=== PATIENT | female | born 1945 | race Caucasian/White ===

== ENCOUNTER 2016-11-20 14:35 | Emergency (ER) | payer MEDICARE, OTHER ==
[~2016-11-20] VITALS: Ht 165.1 cm; Wt 91.0 kg
[~2016-11-20 14:35] MED LIST: ALBU8.5H3 INH; AZIT250T94 PO; DULO60CA6 PO; IBUP-1542 PO; LEVO112T42 PO; METR500T PO; NAPR-688 PO; OMEP20CA16 PO; OXYC-281 PO; PRED20TA PO; TRAZ50TA18 PO
[2016-11-20 14:50] VITALS: Ht 165.1 cm; Wt 91.0 kg
[2016-11-20] MEDS ORDERED: ALBUTEROL 0.5% (NEB) 2.5 MG/0.5 ML AMP INH STA (17:08)
[2016-11-20] MEDS ORDERED: predniSONE 20 MG TAB PO STA (17:08)
[2016-11-20] MEDS ORDERED: ALBUTEROL 0.083% (NEB) 2.5 MG/3 ML AMP NEB STA (17:12)
--- NOTE | 2016-11-20 17:49 | RADRPT ---
PROCEDURE: XR Chest. CLINICAL INDICATION: Shortness of breath. Asthma exacerbation. Cough. TECHNIQUE: Single frontal view. COMPARISON: 02/28/2016. FINDINGS: There is mild scarring at the lung bases. The lungs are otherwise clear. The heart size is normal. There is no pleural effusion or pneumothorax. A surgical screw is present in the left humeral head. IMPRESSION: 1. Mild scarring at the lung bases. 2. Surgical screw in the left humeral head. 3. Otherwise unremarkable study. RPTAT: QQ .Aureliano Choudhury MD, MD Date Time Electronically viewed and signed by .Aureliano Choudhury MD, MD on 11/20/2016 17:49 .R/
[2016-11-20] MEDS ORDERED: AZIT250T94 PO (18:12)
[2016-11-20] MEDS ORDERED: BENZ100C70 PO (18:12)
[2016-11-20] MEDS ORDERED: IBUP-1542 PO (18:15)
[2016-11-20 18:21] VITALS: BP 121/74; PULSE 88; RESP 18; TEMP 98.6
--- NOTE | 2016-11-20 18:38 | ERD ---
ER Documentation Chief Complaint Date/Time DATE: 11/20/16 TIME: 18:30 Chief Complaint cough and sob x3 days HPI Patient is a 71-year-old female with past medical history of hypothyroidism, hypertension who presents emergency department with a cough 3 days. Patient states her cough is initially drainage however it has now become productive. Patient reports yellow to green phlegm. Patient also reports some clear rhinorrhea. Patient states that her cough is worse at night. Patient states that she feels as if she is wheezing. Patient also complaining of chest pain and shortness of breath only when coughing. She does not have chest pain at rest. Patient denies any diaphoresis, jaw pain, arm pain or loss of consciousness. Patient denies any nausea, vomiting, abdominal pain, diarrhea. Patient states she did receive a flu vaccine this year. No recent travel. No sick contacts. ROS All systems reviewed and are negative except as per history of present illness. Medications Home Meds Active Scripts Ibuprofen* (Motrin*) 600 Mg Tab, 600 MG PO Q6, #30 TAB Prov:IRINA COUCH PA-C 11/20/16 Benzonatate* (Tessalon Perle*) 100 Mg Capsule, 100 MG PO Q8H Y for COUGH, #20 CAP Prov:IRINA COUCH PA-C 11/20/16 Azithromycin* (Zithromax*) 250 Mg Tablet, 250 MG PO .ZPACK DIRECTED, #6 TAB TAKE 500 MG (2 TABS) THE FIRST DAY THEN 250 MG (1 TAB) DAYS 2-5 Prov:IRINA COUCH PA-C 11/20/16 Prednisone* (Prednisone*) 20 Mg Tab, 40 MG PO DAILY for 4 Days, TAB Prov:JAY KIRBY PA-C 06/06/16 Albuterol Sulfate* (Proair HFA*) 8.5 Gm Hfa.aer.ad, 2 PUFF INH Q4, #1 INHALER Prov:JAY KIRBY PA-C 06/06/16 Azithromycin* (Zithromax*) 250 Mg Tablet, 250 MG PO .ZPACK DIRECTED, #6 TAB TAKE 500 MG (2 TABS) THE FIRST DAY THEN 250 MG (1 TAB) DAYS 2-5 Prov:JAY KIRBY PA-C 06/06/16 Oxycodone Hcl-Acetaminophen* (Percocet*) 5-325 Mg Tablet, 1 TAB PO Q4H Y for PAIN LEVEL 6-10, #12 TAB Prov:DARRELL LOPEZ MD 12/08/15 Ibuprofen* (Motrin*) 600 Mg Tab, 600 MG PO TID for PAIN AND/OR INFLAMMATION, # 30 TAB Prov:DARRELL LOPEZ MD 12/08/15 Metronidazole* (Flagyl*) 500 Mg Tablet, 500 MG PO TID for 7 Days, TAB Prov:DARRELL LOPEZ MD 12/08/15 Reported Medications Naproxen* (Naproxen*) 500 Mg Tablet, 500 MG PO BID Y for PAIN AND/OR INFLAMMATION, TAB 12/08/15 Omeprazole* (Omeprazole*) 20 Mg Capsule.dr, 20 MG PO DAILY, #30 CAP 12/08/15 Levothyroxine Sodium* (Levoxyl*) 112 Mcg Tablet, 112 MCG PO BEFORE BREAKFAST, # 30 TAB 12/08/15 Duloxetine Hcl* (Cymbalta*) 60 Mg Capsule.dr, 60 MG PO DAILY, CAP 12/08/15 Trazodone Hcl* (Trazodone Hcl*) 50 Mg Tablet, 50 MG PO QHS Y for SLEEP 07/08/12 Allergies Allergies: Coded Allergies: No Known Allergy (Unverified , 06/06/16) PMhx/Soc History of Surgery: Yes (thyroidectomy, L shoulder sc, appendectomy, R elbow sx , hysterectomy) Anesthesia Reaction: No Hx Neurological Disorder: No Hx Respiratory Disorders: Yes (asthma) Hx Cardiac Disorders: No Hx Psychiatric Problems: Yes (Depression) Hx Miscellaneous Medical Probl: Yes (depression, asthma, thyroid ca) Hx Alcohol Use: No Hx Substance Use: No Hx Tobacco Use: No Smoking Status: Never smoker Physical Exam Vitals Vital Signs Date Time Temp Pulse Resp B/P Pulse Ox O2 Delivery O2 Flow Rate FiO2 11/20/16 18:21 98.6 88 18 121/74 96 Room Air 11/20/16 18:20 Simple Mask 11/20/16 17:25 85 18 97 21 11/20/16 14:50 99.2 85 20 132/68 98 Physical Exam GENERAL: Well-developed, well-nourished female. Appears in no acute distress. Speaking in full sentences. No signs of acute respiratory distress including abdominal retractions, nasal flaring, tripoding. HEAD: Normocephalic, atraumatic. No deformities or ecchymosis. EYE: Pupils equal, round, and reactive to light. EOMs intact. No conjunctival erythema. No eye discharge. ENT: External ear without any masses or tenderness. Auditory canals clear bilaterally. TM visualized bilaterally, non-erythematous, non-bulging. Nasal mucosa pink with no discharge. Oropharynx is pink without any tonsillar erythema or exudates. No uvula deviation. No kissing tonsils. Tender to palpation of bilateral mastoid processes. NECK: Supple. No meningismus. Normal ROM of the neck. CHEST: Left chest is tender to palpation. Pain is reproducible upon palpation. LUNG: Slight wheezing noted in bilateral lower lobes. HEART: Regular rate and rhythm. No murmurs, rubs or gallops. BACK: No midline tenderness. EXTREMITIES: Equal pulses bilaterally. No peripheral clubbing, cyanosis or edema. No unilateral leg swelling. NEUROLOGIC: Alert and oriented to person, place and time. Moving all four extremities. 5/5 strength in all extremities. Normal speech. Steady gait. SKIN: Normal color. Warm and dry. No rashes or lesions. Results 24 hrs Current Medications Medications (Trade) Dose Ordered Sig/Derrell Route PRN Reason Start Time Stop Time Status Last Admin Dose Admin Albuterol (Proventil 0.5% (Neb)) 5 mg ONCE STAT INH 11/20/16 17:08 11/20/16 17:14 DC Prednisone (Prednisone) 40 mg ONCE STAT PO 11/20/16 17:08 11/20/16 17:14 DC Albuterol (Proventil 0.083% (Neb)) 2.5 mg ONCE STAT NEB 11/20/16 17:12 11/20/16 17:14 DC 11/20/16 17:24 Procedures/MDM ED COURSE: The patient was stable throughout ED course. I kept the patient and/or family informed of laboratory and diagnostic imaging results throughout the ED course. DIAGNOSTIC IMAGING: Read by radiologist. DIAGNOSTIC IMAGING REPORT Patient: LAUREN RUSH : 1945 Age: 71 Sex: F MR #: [id number] DOS: 11/20/16 1708 Ordering MD: IRINA COUCH PA-C Location: [facility] Room/Bed: PROCEDURE: XR Chest. CLINICAL INDICATION: Shortness of breath. Asthma exacerbation. Cough. TECHNIQUE: Single frontal view. COMPARISON: 02/28/2016. FINDINGS: There is mild scarring at the lung bases. The lungs are otherwise clear. The heart size is normal. There is no pleural effusion or pneumothorax. A surgical screw is present in the left humeral head. IMPRESSION: 1. Mild scarring at the lung bases. 2. Surgical screw in the left humeral head. 3. Otherwise unremarkable study. RPTAT: QQ .Aureliano Choudhury MD, MD Date Time Electronically viewed and signed by .Aureliano Choudhury MD, MD on 11/20/2016 17:49 .R/ CC: IRINA COUCH PA-C MEDICATIONS GIVEN: Albuterol breathing treatment Patient tolerated medication well with no adverse reactions. Upon reexamination , patient was noted to have improved breath sounds. Patient felt that her shortness of breath was improved. MEDICAL DECISION MAKING: This is a 71-year-old female who presents with cough and shortness of breath 3 days. Vital signs were reviewed. Patient was afebrile. Patient was not hypoxic. ENT exam was normal. Lung exam initially revealed slight wheezing. Patient was given a breathing treatment which did improve her breath sounds. Given these findings, the patient's presentation is most consistent with viral URI vs acute bronchitis. I have a much lower clinical concern for bacterial infections including pneumonia, meningitis, sinusitis, otitis externa, acute otitis media, strep pharyngitis, epiglottitis or peritonsillar abscess. PRESCRIPTIONS: Ibuprofen, Zpak, Tessalon perles Patient advised to fill Z miguel if symptoms persist after 3 days from now. DISCHARGE: At this time, patient is stable for discharge and outpatient management. Supportive therapies such as OTC throat lozenges, salt water gurgles, popsicles and jello discussed. I have instructed the patient to follow-up with his/her primary care physician in 1-2 days. I have instructed the patient to promptly return to the ER for any new or worsening symptoms including increased pain, swelling, fever, nausea, vomiting, weakness or difficulty breathing. The patient and/or family expressed understanding of and agreement with this plan. All questions were answered. Home care instructions were provided. Departure Diagnosis: Primary Impression: Acute bronchitis Bronchitis organism: unspecified organism Qualified Code: J20.9 - Acute bronchitis, unspecified organism Condition: Stable Patient Instructions: Acute Bronchitis Referrals: [facility] YOU HAVE RECEIVED A MEDICAL SCREENING EXAM AND THE RESULTS INDICATE THAT YOU DO NOT HAVE A CONDITION THAT REQUIRES URGENT TREATMENT IN THE EMERGENCY DEPARTMENT. FURTHER EVALUATION AND TREATMENT OF YOUR CONDITION CAN WAIT UNTIL YOU ARE SEEN IN YOUR DOCTORS OFFICE WITHIN THE NEXT 1-2 DAYS. IT IS YOUR RESPONSIBILITY TO MAKE AN APPOINTMENT FOR FOLOW-UP CARE. IF YOU HAVE A PRIMARY DOCTOR --you should call your primary doctor and schedule an appointment IF YOU DO NOT HAVE A PRIMARY DOCTOR YOU CAN CALL OUR PHYSICIAN REFERRAL HOTLINE AT IF YOU CAN NOT AFFORD TO SEE A PHYSICIAN YOU CAN CHOSE FROM THE FOLLOWING [facility] [address] [facility] [address] [facility] [facility] [address] [facility] [address] [facility] [address] [facility]. [facility]. [address] [facility] [address] [facility] YOU HAVE RECEIVED A MEDICAL SCREENING EXAM AND THE RESULTS INDICATE THAT YOU DO NOT HAVE A CONDITION THAT REQUIRES URGENT TREATMENT IN THE EMERGENCY DEPARTMENT. FURTHER EVALUATION AND TREATMENT OF YOUR CONDITION CAN WAIT UNTIL YOU ARE SEEN IN YOUR DOCTORS OFFICE WITHIN THE NEXT 1-2 DAYS. IT IS YOUR RESPONSIBILITY TO MAKE AN APPOINTMENT FOR FOLOW-UP CARE. IF YOU HAVE A PRIMARY DOCTOR --you should call your primary doctor and schedule and appointment IF YOU DO NOT HAVE A PRIMARY DOCTOR YOU CAN CALL OUR PHYSICIAN REFERRAL HOTLINE AT . IF YOU CAN NOT AFFORD TO SEE A PHYSICIAN YOU CAN CHOSE FROM THE FOLLOWING [facility] INSTITUTIONS: [facility] [address] [place] [address] [facility] [address] [place] [address] [facility] [address] [place] [address] Additional Instructions: Call your primary care doctor TOMORROW for an appointment during the next 1-2 days.See the doctor sooner or return here if your condition worsens before your appointment time. IRINA COUCH PA-C Nov 20, 2016 18:38
== END 2016-11-20 18:32 | disposition home or self-care (01) ==
LOC: FTE 14:35
DX: J20.9 Acute bronchitis, unspecified (principal); J45.901 Unspecified asthma with (acute) exacerbation; I10 Essential (primary) hypertension; E03.9 Hypothyroidism, unspecified; Z85.850 Personal history of malignant neoplasm of thyroid
CPT/HCPCS: 71010; 94664

== ENCOUNTER 2017-01-10 18:22 | Emergency (ER) | payer MEDICARE, OTHER ==
[~2017-01-10] VITALS: Ht 165.1 cm; Wt 92.0 kg
[~2017-01-10 18:22] MED LIST changes: +BENZ100C70 PO
[2017-01-10 18:25] VITALS: Ht 165.1 cm; Wt 92.0 kg
[2017-01-10] MEDS ORDERED: ALBUTEROL 0.5% (NEB) 2.5 MG/0.5 ML AMP INH STA (19:18)
[2017-01-10] MEDS ORDERED: TERBUTALINE 1 MG/ML INJ SC STA (19:18)
[2017-01-10] MEDS ORDERED: METHYLPREDNISOLONE 125 MG INJ IV STA (19:18)
[2017-01-10] MEDS ORDERED: ONDANSETRON 4 MG INJ IV STA (19:51)
[2017-01-10] MEDS ORDERED: HYDROmorphONE 1 MG/ML SYG IV STA (19:51)
[2017-01-10 19:56] LABS: ADD SCAN DIFF NO
[2017-01-10 20:03] LABS: ABNORMAL IP MESSAGE 1; HEMATOCRIT 42.4 % (37.0-47.0); HEMOGLOBIN 13.8 g/dl (12.0-16.0); MEAN CORPUSCULAR HEMOGLOBIN 27.6 pg (29.0-33.0); MEAN CORPUSCULAR HGB CONC 32.5 g/dl (32.0-37.0); MEAN CORPUSCULAR VOLUME 84.8 fl (82.0-101.0); MEAN PLATELET VOLUME 12.8 fl (7.4-10.4); PLATELET COUNT 153 10^3/UL (140-415); RED CELL DISTRIBUTION WIDTH 14.3 % (11.5-14.5); WHITE BLOOD COUNT 7.9 10^3/ul (4.8-10.8)
--- NOTE | 2017-01-10 20:17 | RADRPT ---
PROCEDURE: Ultrasound of the right lower extremity venous system. CLINICAL INDICATION: Right leg pain and swelling, deep venous thrombosis TECHNIQUE: Lloyd scale with and without compression, color doppler, spectral doppler of the venous system of the right lower extremity was performed. Venous augmentation maneuvers were utilized. COMPARISON: No prior studies are available for comparison. FINDINGS: Common femoral vein: Patent. Femoral vein: Patent. Popliteal vein: Patent. Calf veins: Patent. No soft tissue abnormalities are identified. IMPRESSION: No evidence of a deep vein thrombosis within the right lower extremity. RPTAT: AADD .Bartolo Dillon MD, MD Date Time Electronically viewed and signed by .Bartolo Dillon MD, on 01/10/2017 20:16 .B/
[2017-01-10 20:20] LABS: CHLORIDE 100 mmol/L (97-110); POTASSIUM 4.1 mmol/L (3.5-5.1); SODIUM 135 mmol/L (135-144)
--- NOTE | 2017-01-10 20:20 | RADRPT ---
PROCEDURE: Portable chest x-ray. CLINICAL INDICATION: Chest pain. TECHNIQUE: Portable AP view of the chest. COMPARISON: 11/20/2016. FINDINGS: There is mild left basilar atelectasis. No pulmonary edema or conolidation is identified. The card iac silhouette is magnified. No pleural effusion is seen. There is no pneumothorax. IMPRESSION: 1. No evidence of acute cardiopulmonary disease. RPTAT: HTAR .Mark Larios MD, MD Date Time Electronically viewed and signed by .Mark Larios MD, on 01/10/2017 20:20 .R/
[2017-01-10 20:22] LABS: CREATININE 0.83 mg/dl (0.44-1.00)
[2017-01-10 20:23] LABS: ANION GAP 14 (8-16); BLOOD UREA NITROGEN 15 mg/dl (7-20); CALCIUM 10.2 mg/dl (8.4-10.2); CARBON DIOXIDE 25 mmol/L (21-31); GLUCOSE 99 mg/dl (70-220)
[2017-01-10 20:43] LABS: EOSINOPHILS # 0.1 10^3/ul (0.0-0.5); LYMPHOCYTES # 1.3 10^3/ul (0.8-2.9); MONOCYTE # 2.2 10^3/ul (0.3-0.9); NEUTROPHIL # 4.2 10^3/ul (1.6-7.5)
[2017-01-10 20:44] LABS: PLATELET ESTIMATE PLT APPEAR ADEQUATE
[2017-01-10 20:45] LABS: TROPONIN-I < 0.012 ng/ml (0.00-0.12)
[2017-01-10] MEDS ORDERED: ASPI81TA3 PO (21:14)
[2017-01-10] MEDS ORDERED: LEVO100T87 PO (21:14)
[2017-01-10] MEDS ORDERED: CHOL100062 PO (21:15)
[2017-01-10] MEDS ORDERED: MULTI PO (21:15)
[2017-01-10] MEDS ORDERED: OMEG-135 PO (21:15)
[2017-01-10] MEDS ORDERED: CITRACAL PO (21:16)
[2017-01-10 21:20] VITALS: TEMP 99.3
[2017-01-10] MEDS ORDERED: PRED20TA PO (21:32)
[2017-01-10] MEDS ORDERED: ALBU8.5H3 INH (21:32)
[2017-01-10] MEDS ORDERED: TRAM50TA2 PO (21:32)
--- NOTE | 2017-01-10 21:42 | ERD ---
ER Documentation Chief Complaint Date/Time DATE: 01/10/17 TIME: 21:37 Chief Complaint cough and sob today (rr even/unlabored) with r knee pain last night HPI This is a 71-year-old female with a history of asthma complains of cough onset yesterday got worse today with some progressive shortness of breath and wheezing. Patient also states she is having some pain in her right medial knee for 2 days as well as she does not recall injuring it she is worried because she has had a DVT in her left leg before but she has no right leg swelling or erythema no palpitation . No chest pain ROS All systems reviewed and are negative except as per history of present illness. Medications Home Meds Active Scripts Tramadol HCl (Tramadol HCl) 50 Mg Tablet, 50 MG PO Q6, #20 TAB Prov:SHEILA CARRILLO. DO 01/10/17 Prednisone* (Prednisone*) 20 Mg Tab, 60 MG PO DAILY for 5 Days, TAB Prov:SHEILA CARRILLO DO 01/10/17 Albuterol Sulfate* (Proair HFA*) 8.5 Gm Hfa.aer.ad, 2 PUFF INH Q4, #1 INHALER Prov:SHEILA CARRILLO DO 01/10/17 Benzonatate* (Tessalon Perle*) 100 Mg Capsule, 100 MG PO Q8H Y for COUGH, #20 CAP Prov:IRINA COUCH PA-C 11/20/16 Prednisone* (Prednisone*) 20 Mg Tab, 40 MG PO DAILY for 4 Days, TAB Prov:JAY KIRBY PA-C 06/06/16 Albuterol Sulfate* (Proair HFA*) 8.5 Gm Hfa.aer.ad, 2 PUFF INH Q4, #1 INHALER Prov:JAY KIRBY PA-C 06/06/16 Metronidazole* (Flagyl*) 500 Mg Tablet, 500 MG PO TID for 7 Days, TAB Prov:DARRELL LOPEZ MD 12/08/15 Reported Medications Calcium Citrate* (Citracal*) 950 Mg Tab, 950 MG PO DAILY, TAB 01/10/17 [place]-3 Fatty Acids/Fish Oil (Fish Oil 1,000 mg Capsule) 1 Each Capsule, 1 EACH PO, CAP 01/10/17 Cholecalciferol* (Vitamin D3*) 1,000 Unit Tablet, 1000 UNIT PO DAILY, TAB 01/10/17 Multivitamins* (Theragran*) 1 Tab Tab, 1 TAB PO DAILY, TAB 01/10/17 Levothyroxine Sodium* (Levothyroxine Sodium*) 100 Mcg Tablet, 100 MCG PO BEFORE BREAKFAST, #30 TAB 01/10/17 Aspirin* (Aspirin* Chew) 81 Mg Tab.chew, 81 MG PO DAILY, TAB.CHEW 01/10/17 Duloxetine Hcl* (Cymbalta*) 60 Mg Capsule.dr, 60 MG PO DAILY, CAP 12/08/15 Trazodone Hcl* (Trazodone Hcl*) 50 Mg Tablet, 50 MG PO QHS Y for SLEEP 07/08/12 Discontinued Reported Medications Naproxen* (Naproxen*) 500 Mg Tablet, 500 MG PO BID Y for PAIN AND/OR INFLAMMATION, TAB 12/08/15 Omeprazole* (Omeprazole*) 20 Mg Capsule.dr, 20 MG PO DAILY, #30 CAP 12/08/15 Levothyroxine Sodium* (Levoxyl*) 112 Mcg Tablet, 112 MCG PO BEFORE BREAKFAST, # 30 TAB 12/08/15 Discontinued Scripts Ibuprofen* (Motrin*) 600 Mg Tab, 600 MG PO Q6, #30 TAB Prov:IRINA COUCH PA-C 11/20/16 Azithromycin* (Zithromax*) 250 Mg Tablet, 250 MG PO .ZPACK DIRECTED, #6 TAB TAKE 500 MG (2 TABS) THE FIRST DAY THEN 250 MG (1 TAB) DAYS 2-5 Prov:IRINA COUCH PA-C 11/20/16 Azithromycin* (Zithromax*) 250 Mg Tablet, 250 MG PO .ZPAMOISE DIRECTED, #6 TAB TAKE 500 MG (2 TABS) THE FIRST DAY THEN 250 MG (1 TAB) DAYS 2-5 Prov:JAY KIRBY PA-C 06/06/16 Oxycodone Hcl-Acetaminophen* (Percocet*) 5-325 Mg Tablet, 1 TAB PO Q4H Y for PAIN LEVEL 6-10, #12 TAB Prov:DARRELL LOPEZ MD 12/08/15 Ibuprofen* (Motrin*) 600 Mg Tab, 600 MG PO TID for PAIN AND/OR INFLAMMATION, # 30 TAB Prov:DARRELL LOPEZ MD 12/08/15 Allergies Allergies: Coded Allergies: levofloxacin (Unverified Allergy, Severe, SWOLLEN SKIN (ARMS), 01/10/17) PMhx/Soc History of Surgery: Yes (thyroidectomy, L shoulder sc, appendectomy, R elbow sx , hysterectomy) Anesthesia Reaction: No Hx Neurological Disorder: No Hx Respiratory Disorders: Yes (asthma) Hx Cardiac Disorders: No Hx Psychiatric Problems: Yes (Depression) Hx Miscellaneous Medical Probl: Yes (depression, asthma, thyroid ca) Hx Alcohol Use: No Hx Substance Use: No Hx Tobacco Use: No Smoking Status: Never smoker FmHx Family History: No coronary disease Physical Exam Vitals Vital Signs Date Time Temp Pulse Resp B/P Pulse Ox O2 Delivery O2 Flow Rate FiO2 01/10/17 19:35 71 22 98 21 01/10/17 19:20 Vapotherm 10.0 01/10/17 18:25 99.3 84 16 144/91 100 Physical Exam Const: Well-developed, well-nourished Head: Atraumatic, normocephalic Eyes: Normal Conjunctiva, PERRLA, EOMI, normal sclera, no nystagmus ENT: Normal External Ears, Nose and Mouth, moist mucus membranes. Neck: Full range of motion. No meningismus, no lymphadenopathy. Resp: There is some mild increased work of breathing with diffuse expiratory wheezes. Cardio: Regular rate and rhythm, no murmurs, S1 S2 present Abd: Soft, non tender x 4, non distended. Normal bowel sounds, no guarding or rebound, no pulsitile abdominal masses or bruits Skin: No petechiae or rashes, no ecchymosis , no maculopapular rash Back: No midline or flank tenderness Ext: No cyanosis, or edema, FROM x 4, normal inspection, tenderness to the medial tibial plateau there is no swelling there is full range of motion with out pain neurovascularly intact x 4 Neur: Awake and alert, STR 5/5 x 4, sensation intact x 4, no focal findings, cerebellum intact Psych: Normal Mood and Affect Result Diagram: 01/10/17194401/10/171944 Results 24 hrs Laboratory Tests Test 01/10/17 19:45 White Blood Count 7.910^3/ul Red Blood Count 5.0010^6/ul Hemoglobin 13.8g/dl Hematocrit 42.4% Mean Corpuscular Volume 84.8fl Mean Corpuscular Hemoglobin 27.6pg Mean Corpuscular Hemoglobin Concent 32.5g/dl Red Cell Distribution Width 14.3% Platelet Count 81673^3/UL Mean Platelet Volume 12.8fl Neutrophils % 53.0% Band Neutrophils % 2.0% Lymphocytes % 16.0% Monocytes % 28.0% Eosinophils % 1.0% Neutrophils # 4.210^3/ul Lymphocytes # 1.310^3/ul Monocytes # 2.210^3/ul Eosinophils # 0.110^3/ul Platelet Estimate PLT APPEAR ADEQUATE Sodium Level 135mmol/L Potassium Level 4.1mmol/L Chloride Level 100mmol/L Carbon Dioxide Level 25mmol/L Anion Gap 14 Blood Urea Nitrogen 15mg/dl Creatinine 0.83mg/dl Glucose Level 99mg/dl Calcium Level 10.2mg/dl Troponin I < 0.012ng/ml Current Medications Medications (Trade) Dose Ordered Sig/Derrell Route PRN Reason Start Time Stop Time Status Last Admin Dose Admin Albuterol (Proventil 0.5% (Neb)) 10 mg ONCE STAT INH 01/10/17 19:18 01/10/17 19:20 DC 01/10/17 19:35 Methylprednisolone Sodium Succinate (Solu-Medrol) 125 mg ONCE STAT IV 01/10/17 19:18 01/10/17 19:21 DC 01/10/17 19:38 Terbutaline Sulfate (Brethine) 0.25 mg ONCE STAT SC 01/10/17 19:18 01/10/17 19:21 DC 01/10/17 19:46 Hydromorphone HCl (Dilaudid) 1 mg ONCE STAT IV 01/10/17 19:51 01/10/17 19:52 DC 01/10/17 20:11 Ondansetron HCl (Zofran Inj) 4 mg ONCE STAT IV 01/10/17 19:51 01/10/17 19:52 DC 01/10/17 20:11 Procedures/MDM PROCEDURE: Portable chest x-ray. CLINICAL INDICATION: Chest pain. TECHNIQUE: Portable AP view of the chest. COMPARISON: 11/20/2016. FINDINGS: There is mild left basilar atelectasis. No pulmonary edema or conolidation is identified. The cardiac silhouette is magnified. No pleural effusion is seen. There is no pneumothorax. IMPRESSION: 1. No evidence of acute cardiopulmonary disease. RPTAT: HTAR .Mark Larios MD, MD Date Time Electronically viewed and signed by .Mark Larios MD, MD on 01/10/2017 20:20 .R/ CC: SHEILA CARRILLO DO PROCEDURE: Ultrasound of the right lower extremity venous system. CLINICAL INDICATION: Right leg pain and swelling, deep venous thrombosis TECHNIQUE: Lloyd scale with and without compression, color doppler, spectral doppler of the venous system of the right lower extremity was performed. Venous augmentation maneuvers were utilized. COMPARISON: No prior studies are available for comparison. FINDINGS: Common femoral vein: Patent. Femoral vein: Patent. Popliteal vein: Patent. Calf veins: Patent. No soft tissue abnormalities are identified. IMPRESSION: No evidence of a deep vein thrombosis within the right lower extremity. RPTAT: AADD .Bartolo Dillon MD, MD Date Time Electronically viewed and signed by .Bartolo Dillon MD, MD on 01/10/2017 20:16 .B/ CC: SHEILA CARRILLO DO Reexamination at 2135 the patient says she is breathing back to normal. Her respiratory rate is normal. Her lung sounds are clear. Room air oxygenation is 100%. We will discharge with Ultram for knee pain as there is no DVT. Discharged with prednisone and albuterol inhaler EKG: Rate/Rhythm: Normal sinus rhythm heart rate 72 QRS, ST, QT: NORMAL MI, QRS, QT] Impression: NORMAL EKG Departure Diagnosis: Primary Impression: Asthma exacerbation Condition: Stable Patient Instructions: Asthma Medications SHEILA CARRILLO DO January 10, 2017 21:41
[2017-01-10 21:56] VITALS: BP 120/74; PULSE 80; RESP 16
== END 2017-01-10 21:57 | disposition home or self-care (01) ==
LOC: E/R 18:22
DX: J45.901 Unspecified asthma with (acute) exacerbation (principal); R07.9 Chest pain, unspecified; Z85.850 Personal history of malignant neoplasm of thyroid; Z79.82 Long term (current) use of aspirin
CPT/HCPCS: 71010; 80048; 84484; 85025; 93971; 94644; 96372; 96374; 96375; 99285; J1170; J2405; J2930; J3105

== ENCOUNTER 2017-06-04 16:24 | Emergency (ER) | payer MEDICARE, OTHER ==
[~2017-06-04] VITALS: Ht 152.4 cm; Wt 92.5 kg
[~2017-06-04 16:24] MED LIST changes: +ASPI81TA3 PO; -AZIT250T94 PO; +CHOL100062 PO; +CITRACAL PO; -IBUP-1542 PO; +LEVO100T87 PO; -LEVO112T42 PO; +MULTI PO; -NAPR-688 PO; +OMEG-135 PO; -OMEP20CA16 PO; -OXYC-281 PO; +TRAM50TA2 PO
[2017-06-04 16:26] VITALS: Ht 152.4 cm; Wt 92.5 kg
[2017-06-04] MEDS ORDERED: KETOROLAC 60 MG INJ IM STA (17:47)
--- NOTE | 2017-06-04 19:27 | RADRPT ---
PROCEDURE: CT thoracic spine without contrast. CLINICAL INDICATION: Trauma. Back pain. TECHNIQUE: Helical axial sections were obtained through the thoracic spine without intravenous con trast enhancement. Sagittal and coronal reformatted images were accomplished using the data from th e axial images. Total exam DLP is 1421.47 mGy-cm. CTDIvol is 32.18 mGy. One or more of the follow ing dose reduction techniques were used: Automated exposure control, adjustment of the mA and/or kV according to patient size, use of iterative reconstruction technique. COMPARISON: No prior studies are available for comparison. FINDINGS: There is normal stature and alignment of the vertebrae. There is no fracture. There are degenerative changes in the mid and lower thoracic spine with disc space narrowing and ant erior osteophytes. There is no central or foraminal stenosis. There is no lytic or blastic lesion. The thoracic aorta is not dilated. There is calcification in the aorta consistent with atheroscleros is. There is a benign cyst in the mid right kidney posteriorly measuring 2.3 cm. IMPRESSION: 1. Degenerative changes of the mid and lower thoracic spine. 2. No central or foraminal stenosis. 3. No fracture. 4. Atherosclerosis. 5. Benign right renal cyst. RPTAT: QQ .Aureliano Choudhury MD, MD Date Time Electronically viewed and signed by .Aureliano Choudhury MD, on 06/04/2017 19:26 .R/
[2017-06-04] MEDS ORDERED: TRAM50TA2 PO (19:30)
--- NOTE | 2017-06-04 20:34 | ERD ---
ER Documentation Chief Complaint Date/Time DATE: 06/04/17 TIME: 20:28 Chief Complaint FELL 2 WEEKS AGO, HAS BACK PAIN, SEEN AT [facility] ALREADY HPI 72-year-old female complaining of left-sided back pain after fall 2 weeks ago. Patient states she was seen at all of you 2 weeks ago and had extensive x-rays all which were negative. Patient states she is continued to have pain in her back and with deep breaths. She is taking ibuprofen for pain control with no relief. Denies any cardiac chest pain or radiating chest pain. Denies any head injury or loss of consciousness. Medical history: Hypertension, thyroidism. Allergies to medication: Levofloxacin. Surgical history: Denies ROS All systems reviewed and are negative except as per history of present illness. Medications Home Meds Active Scripts Tramadol HCl (Tramadol HCl) 50 Mg Tablet, 50 MG PO Q4 Y for PAIN, #20 TAB Prov:JUDY DELACRUZ PA-C 06/04/17 Tramadol HCl (Tramadol HCl) 50 Mg Tablet, 50 MG PO Q6, #20 TAB Prov:SHEILA CARRILLO DO 01/10/17 Prednisone* (Prednisone*) 20 Mg Tab, 60 MG PO DAILY for 5 Days, TAB Prov:SHEILA CARRILLO DO 01/10/17 Albuterol Sulfate* (Proair HFA*) 8.5 Gm Hfa.aer.ad, 2 PUFF INH Q4, #1 INHALER Prov:SHEILA CARRILLO DO 01/10/17 Benzonatate* (Tessalon Perle*) 100 Mg Capsule, 100 MG PO Q8H Y for COUGH, #20 CAP Prov:IRINA COUCH PA-C 11/20/16 Prednisone* (Prednisone*) 20 Mg Tab, 40 MG PO DAILY for 4 Days, TAB Prov:JAY KIRBY PA-C 06/06/16 Albuterol Sulfate* (Proair HFA*) 8.5 Gm Hfa.aer.ad, 2 PUFF INH Q4, #1 INHALER Prov:JAY KIRBY PA-C 06/06/16 Metronidazole* (Flagyl*) 500 Mg Tablet, 500 MG PO TID for 7 Days, TAB Prov:DARRELL LOPEZ MD 12/08/15 Reported Medications Calcium Citrate* (Citracal*) 950 Mg Tab, 950 MG PO DAILY, TAB 01/10/17 [place]-3 Fatty Acids/Fish Oil (Fish Oil 1,000 mg Capsule) 1 Each Capsule, 1 EACH PO, CAP 01/10/17 Cholecalciferol* (Vitamin D3*) 1,000 Unit Tablet, 1000 UNIT PO DAILY, TAB 01/10/17 Multivitamins* (Theragran*) 1 Tab Tab, 1 TAB PO DAILY, TAB 01/10/17 Levothyroxine Sodium* (Levothyroxine Sodium*) 100 Mcg Tablet, 100 MCG PO BEFORE BREAKFAST, #30 TAB 01/10/17 Aspirin* (Aspirin* Chew) 81 Mg Tab.chew, 81 MG PO DAILY, TAB.CHEW 01/10/17 Duloxetine Hcl* (Cymbalta*) 60 Mg Capsule.dr, 60 MG PO DAILY, CAP 12/08/15 Trazodone Hcl* (Trazodone Hcl*) 50 Mg Tablet, 50 MG PO QHS Y for SLEEP 07/08/12 Allergies Allergies: Coded Allergies: levofloxacin (Unverified Allergy, Severe, SWOLLEN SKIN (ARMS), 06/04/17) PMhx/Soc History of Surgery: Yes (thyroidectomy, L shoulder sc, appendectomy, R elbow sx , hysterectomy) Anesthesia Reaction: No Hx Neurological Disorder: No Hx Respiratory Disorders: Yes (asthma) Hx Cardiac Disorders: No Hx Psychiatric Problems: Yes (Depression) Hx Miscellaneous Medical Probl: Yes (depression, asthma, thyroid ca) Hx Alcohol Use: No Hx Substance Use: No Hx Tobacco Use: No Smoking Status: Never smoker Physical Exam Vitals Vital Signs Date Time Temp Pulse Resp B/P Pulse Ox O2 Delivery O2 Flow Rate FiO2 06/04/17 16:26 99.1 92 18 160/73 99 Physical Exam GENERAL: The patient is well-appearing, well-nourished, in no acute distress CHEST: Clear to auscultation bilaterally. There are no rales, wheezes or rhonchi. HEART: Regular rate and rhythm. No murmurs, clicks, rubs or gallops. No S3 or S4. BACK: Or to palpation over the left posterior rib space. No midline lumbar or cervical tenderness. Questionable thoracic midline tenderness. No bony step- offs EXTREMITIES: Equal pulses bilaterally. There is no peripheral clubbing, cyanosis or edema. No focal swelling or erythema. Full range of motion. Grossly neurovascularly intact. SKIN: There is no apparent rash or petechiae. The skin is warm and dry. No ecchymosis Results 24 hrs Current Medications Medications (Trade) Dose Ordered Sig/Derrell Route PRN Reason Start Time Stop Time Status Last Admin Dose Admin Ketorolac Tromethamine (Toradol) 60 mg ONCE STAT IM 06/04/17 17:47 06/04/17 17:49 DC 06/04/17 17:59 Procedures/MDM ER course: IM 30 mg Toradol DIAGNOSTIC IMAGING REPORT Patient: LAUREN RUSH : 1945 Age: 72 Sex: F MR #: [id number] DOS: 06/04/171746 Ordering MD: MITCHELL DELACRUZ PA-C Location: [facility] Room/Bed: PROCEDURE: CT thoracic spine without contrast. CLINICAL INDICATION: Trauma. Back pain. TECHNIQUE: Helical axial sections were obtained through the thoracic spine without intravenous contrast enhancement. Sagittal and coronal reformatted images were accomplished using the data from the axial images. Total exam DLP is 1421.47 mGy-cm. CTDIvol is 32.18 mGy. One or more of the following dose reduction techniques were used: Automated exposure control, adjustment of the mA and/or kV according to patient size, use of iterative reconstruction technique. COMPARISON: No prior studies are available for comparison. FINDINGS: There is normal stature and alignment of the vertebrae. There is no fracture. There are degenerative changes in the mid and lower thoracic spine with disc space narrowing and anterior osteophytes. There is no central or foraminal stenosis. There is no lytic or blastic lesion. The thoracic aorta is not dilated. There is calcification in the aorta consistent with atherosclerosis. There is a benign cyst in the mid right kidney posteriorly measuring 2.3 cm. IMPRESSION: 1. Degenerative changes of the mid and lower thoracic spine. 2. No central or foraminal stenosis. 3. No fracture. 4. Atherosclerosis. 5. Benign right renal cyst. MDM: 72 yr old female complaining of left rib pain and questionable thoracic pain on exam. Patient declines left rib x-ray series. CT scan shows no signs of thoracic bony injuries. I have low suspicion for acute fracture dislocation. I am not able to rule out a possible rib fracture as patient declined x-ray series in the ED. Patient's vital signs are stable with normal oxygen saturation of 99% on room air. I have low suspicion for hypoxia. I have low suspicion for shingles as there is no rash seen on exam. Patient is discharged with strong pain medication and recommended to return to ER if symptoms change or worsen. Patient is recommended to follow-up with primary care within 1-2 days for close evaluation. All questions answered upon discharge Departure Diagnosis: Primary Impression: Back pain Condition: Stable Patient Instructions: Back Pain (Acute Or Chronic) Referrals: [facility] (PCP) Additional Instructions: FOLLOW UP WITH YOUR PRIMARY CARE PHYSICIAN TOMORROW.Return to this facility if you are not improving as expected. JUDY DELACRUZ PA-C Jun 04, 2017 20:33
== END 2017-06-04 19:49 | disposition home or self-care (01) ==
LOC: FTE 16:24
DX: M54.6 Pain in thoracic spine (principal); J45.909 Unspecified asthma, uncomplicated; Z79.82 Long term (current) use of aspirin; Z85.850 Personal history of malignant neoplasm of thyroid
CPT/HCPCS: 72128; 96372; 99285; J1885